=== PATIENT | male | born 2000 | race Caucasian/White ===

== ENCOUNTER 2024-09-07 22:21 | Emergency (ER) | payer BC ==
[2024-09-07] MEDS ORDERED: Meclizine HCl 25 MG TAB ONE (23:27)
[2024-09-07] MEDS ORDERED: Oxymetazoline HCl 0.05% (30 ML BOT) ONE (23:35)
[2024-09-08 00:12] LABS: #Basophils 0.06 10x3/uL (0.0-0.2); %Basophils 0.7 % (0.0-1.0); %Eosinophils 2.2 % (0.0-10.0); %Monocytes 10.2 % (0.0-10.0); %Neutrophils 58.4 % (42.0-75.0); Hemoglobin 13.3 g/dL (14.0-18.0); Mean Corpuscular HGB CONC 34.1 g/dL (32.0-36.0); Mean Corpuscular Hemoglobin 30.2 pg (27.0-31.0); Mean Corpuscular Volume 88.4 fL (78.0-98.0); Mean Platelet Volume 9.9 fL (7.4-10.4); Platelet Count 317 10x3/uL (130-400); RBC Distribution Width 12.7 % (11.5-14.5); Red Blood Cell (RBC) Count 4.41 mill/uL (4.70-6.10)
[2024-09-08 00:32] LABS: ALT (SGPT) 21 U/L (8-55); AST (SGOT) 20 U/L (5-34); Albumin 4.2 g/dL (3.5-5.0); Alkaline Phosphatase 53 U/L (40-110); Anion Gap 12 mmol/L (10-20); BUN (Urea Nitrogen) 13 mg/dL (8.9-20.6); Bilirubin, Total 0.3 mg/dL (0.2-1.2); Calc. Creatinine Clearance 0 mL/min (70-130); Calcium 9.3 mg/dL (7.8-10.44); Carbon Dioxide 25 mmol/L (22-29); Chloride 107 mmol/L (98-107); Estimated GFR 104; Globulin 2.7 g/dL (2.4-3.5); Glucose 91 mg/dL (70-105); Protein, Total 6.9 g/dL (6.0-8.3); Sodium 140 mmol/L (136-145)
== END 2024-09-08 00:53 | disposition home or self-care (01) ==
LOC: ERS 22:21
DX: R42 Dizziness and giddiness (principal)
CPT/HCPCS: 36416; 80053; 85025; 93005; 99284